=== PATIENT | male | born 1960 | race American Indian/Alaskan Native ===

== ENCOUNTER 2021-01-25 16:31 | Emergency (ER) | payer MEDICARE ==
--- NOTE | 2021-01-25 17:30 | Event Note ---
ED Screening Note Date of service: 01/25/21 Time: 17:24 ED Screening Note: 60 year old with Chronic back pain secondary to DDD, DM diet controlled, HTN presents to the ER today with complaints of urinary retention since yesterday and diarrhea for 1 months. This initial assessment/diagnostic orders/clinical plan/treatment(s) is/are subject to change based on patients health status, clinical progression and re- assessment by fellow clinical providers in the ED. Further treatment and workup at subsequent clinical providers discretion. Patient/guardian urged not to elope from the ED as their condition may be serious if not clinically assessed and managed. Initial orders include: Abdominal pain work-up
[2021-01-25 18:12] LABS: Hematocrit 46.2 % (35.5-45.6); Hemoglobin 15.2 gm/dl (11.8-15.2); Mean Corpuscular HGB Conc 33 % (32-34); Mean Corpuscular Volume 87 fl (84-94); Platelet Count 277 K/mm3 (140-440); Red Blood Count 5.31 M/mm3 (3.65-5.03); Red Cell Distribution Width 14.2 % (13.2-15.2)
[2021-01-25 18:30] LABS: Alanine Aminotransferase 9 units/L (7-56); Albumin 3.8 g/dL (3.9-5); BUN/Creatinine Ratio 14; Bilirubin,Direct 0.3 mg/dL (0-0.2); Blood Urea Nitrogen 11 mg/dL (9-20); Calcium 9.2 mg/dL (8.4-10.2); Hemolysis Index 11
[2021-01-25 19:46] LABS: RBC Morphology Normal; Total Cells Counted 100
--- NOTE | 2021-01-25 22:00 | Emergency Department Report ---
HPI - General Chief Complaint: Abdominal Pain Time Seen by Provider: 01/25/21 17:23 - HPI HPI: Room 17 The patient is a 60-year-old male present with chief complaint of watery stool and decreased urination. The patient states for approximately 2 months he has had watery stool hyperactive sounds, is abdomen (gurgling). Patient states he has had increased flatus. Patient denies nausea or vomiting. Patient states she has had bilateral lower quadrant discomfort for several months. Patient states he has not seen a engineering associate for the symptoms. The patient states since yesterday he has had the urge to urinate but has not been able to. Patient states maybe a few drops come out when he tries ED Past Medical Hx - Past Medical History Previous Medical History?: Yes Hx Hypertension: Yes Hx Diabetes: Yes Hx Arthritis: Yes Additional medical history: DDD - Surgical History Past Surgical History?: Yes Additional Surgical History: neck surgery. tonsillectomy - Family History Family history: no significant - Social History Smoking Status: Never Smoker Substance Use Type: None (Denies illicit drug use), Alcohol (Occasional) - Medications Home Medications: Home Medications Medication Instructions Recorded Confirmed Last Taken Type Lisinopril/Hydrochlorothiazide 1 each PO QDAY #30 tablet 11/19/13 Unknown Rx [Zestoretic 20-12.5 mg] Oxycodone HCl/Acetaminophen 1 each PO Q6HR PRN #30 tablet 11/19/13 Unknown Rx [Percocet 7.5-325 mg] labetaloL [Labetalol 200mg TAB] 200 mg PO BID #60 tablet 11/19/13 Unknown Rx metFORMIN [Glucophage] 500 mg PO BID #60 tablet 11/19/13 Unknown Rx Ciprofloxacin HCl 500 mg PO BID #14 tablet 01/26/21 Unknown Rx traMADoL [Ultram] 50 mg PO Q6HR PRN #10 tablet 01/26/21 Unknown Rx ED Review of Systems ROS: Stated complaint: HYPERGLYCEMIA Other details as noted in HPI Constitutional: fever (Subjective) Eyes: denies: eye pain ENT: denies: throat pain Respiratory: no symptoms reported Cardiovascular: denies: chest pain Endocrine: no symptoms reported Gastrointestinal: abdominal pain, diarrhea. denies: nausea, vomiting Genitourinary: other (Unable to urinate) Musculoskeletal: back pain (Chronic) Neurological: denies: headache Physical Exam - Physical Exam Vital Signs: Vital Signs 01/25/21 17:12 Temperature 99.1 F Pulse Rate 90 Respiratory 20 Rate Blood Pressure 168/104 O2 Sat by Pulse 97 Oximetry Physical Exam: GENERAL: The patient is well-developed well-nourished male lying on stretcher not appearing to be in acute distress. [] HEENT: Normocephalic. Atraumatic. Extraocular motions are intact. Patient has moist mucous membranes. NECK: Supple. Trachea midline CHEST/LUNGS: Clear to auscultation. There is no respiratory distress noted. HEART/CARDIOVASCULAR: Regular. There is no tachycardia. There is no gallop rub or murmur. ABDOMEN: Abdomen is soft, mild discomfort to palpation in the right lower quadrant. There is no rebound or guarding. Patient has normal bowel sounds. There is no abdominal distention. SKIN: There is no rash. There is no edema. There is no diaphoresis. NEURO: The patient is awake, alert, and oriented. The patient is cooperative. The patient has no focal neurologic deficits. The patient has normal speech MUSCULOSKELETAL: There is no evidence of acute injury. ED Course Vital Signs 01/25/21 17:12 Temperature 99.1 F Pulse Rate 90 Respiratory 20 Rate Blood Pressure 168/104 O2 Sat by Pulse 97 Oximetry ED Medical Decision Making - Lab Data Result diagrams: 01/25/21 17:44 01/25/21 17:44 Laboratory Tests 01/25/21 01/25/21 01/25/21 17:21 17:44 17:44 WBC 4.6 RBC 5.31 H Hgb 15.2 Hct 46.2 H MCV 87 MCH 29 MCHC 33 RDW 14.2 Plt Count 277 [place] % (Auto) Field Cane Scaler Helper Add Manual Diff Complete Total Counted 100 Seg Neuts % (Manual) 51.0 Lymphocytes % (Manual) 31.0 Monocytes % (Manual) 17.0 H Eosinophils % (Manual) 1.0 Nucleated RBC % Not Reportable Seg Neutrophils # Man 2.3 Band Neutrophils # 0.0 Lymphocytes # (Manual) 1.4 Abs React Lymphs (Man) 0.0 Monocytes # (Manual) 0.8 Eosinophils # (Manual) 0.0 Basophils # (Manual) 0.0 Metamyelocytes # 0.0 Myelocytes # 0.0 Promyelocytes # 0.0 Blast Cells # 0.0 WBC Morphology Not Reportable Hypersegmented Neuts Not Reportable Hyposegmented Neuts Not Reportable Hypogranular Neuts Not Reportable Smudge Cells Not Reportable Toxic Granulation Not Reportable Toxic Vacuolation Not Reportable Dohle Bodies Not Reportable Pelger-Huet Anomaly Not Reportable Garfield Rods Not Reportable Platelet Estimate Not Reportable Clumped Platelets Not Reportable Plt Clumps, EDTA Not Reportable Large Platelets Not Reportable Giant Platelets Not Reportable Platelet Satelliting Not Reportable Plt Morphology Comment Not Reportable RBC Morphology Normal Dimorphic RBCs Not Reportable Polychromasia Not Reportable Hypochromasia Not Reportable Poikilocytosis Not Reportable Anisocytosis Not Reportable Microcytosis Not Reportable Macrocytosis Not Reportable Spherocytes Not Reportable Pappenheimer Bodies Not Reportable Sickle Cells Not Reportable Target Cells Not Reportable Tear Drop Cells Not Reportable Ovalocytes Not Reportable Helmet Cells Not Reportable Abd[place] Bodies Not Reportable [place] Rings Not Reportable [place] Cells Not Reportable Bite Cells Not Reportable Crenated Cell Not Reportable Elliptocytes Not Reportable Acanthocytes (Spur) Not Reportable Rouleaux Not Reportable Hemoglobin C Crystals Not Reportable Schistocytes Not Reportable Malaria parasites Not Reportable Thomas Bodies Not Reportable Hem Pathologist Commnt No Sodium 139 Potassium 4.2 Chloride 100.6 Carbon Dioxide 27 Anion Gap 16 BUN 11 Creatinine 0.8 Estimated GFR > 60 BUN/Creatinine Ratio 14 Glucose 105 H POC Glucose 111 H Calcium 9.2 Total Bilirubin 0.70 Direct Bilirubin 0.3 H Indirect Bilirubin 0.4 AST 13 ALT 9 Alkaline Phosphatase 42 Total Protein 7.6 Albumin 3.8 L Albumin/Globulin Ratio 1.0 Lipase 14 Urine Color Urine Turbidity Urine pH Ur Specific Josephine Urine Protein Urine Glucose (UA) Urine Ketones Urine Blood Urine Nitrite Urine Bilirubin Urine Urobilinogen Ur Leukocyte Esterase Urine WBC (Auto) Urine RBC (Auto) U Epithel Cells (Auto) Urine Bacteria (Auto) Urine Mucus 01/25/21 23:03 WBC RBC Hgb Hct MCV MCH MCHC RDW Plt Count [place] % (Auto) Add Manual Diff Total Counted Seg Neuts % (Manual) Lymphocytes % (Manual) Monocytes % (Manual) Eosinophils % (Manual) Nucleated RBC % Seg Neutrophils # Man Band Neutrophils # Lymphocytes # (Manual) Abs React Lymphs (Man) Monocytes # (Manual) Eosinophils # (Manual) Basophils # (Manual) Metamyelocytes # Myelocytes # Promyelocytes # Blast Cells # WBC Morphology Hypersegmented Neuts Hyposegmented Neuts Hypogranular Neuts Smudge Cells Toxic Granulation Toxic Vacuolation Dohle Bodies Pelger-Huet Anomaly Garfield Rods Platelet Estimate Clumped Platelets Plt Clumps, EDTA Large Platelets Giant Platelets Platelet Satelliting Plt Morphology Comment RBC Morphology Dimorphic RBCs Polychromasia Hypochromasia Poikilocytosis Anisocytosis Microcytosis Macrocytosis Spherocytes Pappenheimer Bodies Sickle Cells Target Cells Tear Drop Cells Ovalocytes Helmet Cells Abdalla-[place] Bodies [place] Rings [place] Cells Bite Cells Crenated Cell Elliptocytes Acanthocytes (Spur) Rouleaux Hemoglobin C Crystals Schistocytes Malaria parasites Thomas Bodies Hem Pathologist Commnt Sodium Potassium Chloride Carbon Dioxide Anion Gap BUN Creatinine Estimated GFR BUN/Creatinine Ratio Glucose POC Glucose Calcium Total Bilirubin Direct Bilirubin Indirect Bilirubin AST ALT Alkaline Phosphatase Total Protein Albumin Albumin/Globulin Ratio Lipase Urine Color Glenny Urine Turbidity Clear Urine pH 5.0 Ur Specific Josephine 1.024 Urine Protein 100 mg/dl Urine Glucose (UA) Neg Urine Ketones Tr Urine Blood Neg Urine Nitrite Neg Urine Bilirubin Neg Urine Urobilinogen 2.0 Ur Leukocyte Esterase Neg Urine WBC (Auto) 8.0 H Urine RBC (Auto) 9.0 U Epithel Cells (Auto) < 1.0 Urine Bacteria (Auto) 1+ Urine Mucus 3+ - Radiology Data Radiology results: report reviewed (CT abdomen pelvis), image reviewed (CT abdomen pelvis) [facility] [address] [place] [address] Cat Scan Report Signed Patient: LEVI TERRY MR#: [id number] 12 : 1960 ct:[id number] Age/Sex: 60 / M ADM Date: 01/25/21 Loc: ED Attending Dr: Ordering Physician: RUI COX MD Date of Service: 01/25/21 Procedure(s): CT abdomen pelvis wo con Accession Number(s): [id number] cc: RUI COX MD CT ABDOMEN AND PELVIS WITHOUT CONTRAST INDICATION / CLINICAL INFORMATION: Lower abdominal discomfort, watery stool. TECHNIQUE: Axial CT images were obtained through the abdomen and pelvis without IV contrast. All CT scans at this location are performed using CT dose reduction for ALARA by means of automated exposure control. COMPARISON: None available. FINDINGS: LOWER CHEST: No significant abnormality. LIVER: No significant abnormality. GALLBLADDER: No significant abnormality. BILE DUCTS: No significant abnormality. PANCREAS: No significant abnormality. SPLEEN: No significant abnormality. ADRENALS: No significant abnormality. RIGHT KIDNEY / URETER: Multiple nonobstructive lower pole right renal stones are seen measuring up to 4 mm. There is nonspecific mild to moderate right perinephric fat stranding. Right lower renal pole cysts measure up to 6.2 cm. No other significant abnormality. LEFT KIDNEY / URETER: There is nonspecific mild to moderate left perinephric fat stranding with a cyst seen along the mid pole measuring up to 2 cm . A 2 mm nonobstructive stone is seen along the left lower pole. There is a 4.6 mm nonobstructive mid pole stone. No other significant abnormality. STOMACH / SMALL BOWEL: No significant abnormality. COLON: No significant abnormality. APPENDIX: No significant abnormality. PERITONEUM: No free fluid. No free air. No fluid collection. LYMPH NODES: There are multiple mildly enlarged bilateral inguinal nodes. A equal opportunity representative right inguinal node on image 197 of series 2 measures 1.5 cm in short axis dimension. No other significant adenopathy. AORTA / ARTERIES: There is mild generalized atherosclerosis without other significant abnormalities. IVC / VEINS: No significant abnormality. URINARY BLADDER: Drained by a Shahid catheter. REPRODUCTIVE ORGANS: No significant abnormality. ADDITIONAL FINDINGS: None. SKELETAL SYSTEM: No acute abnormality. Moderate degenerative changes are seen throughout the spine and pelvis. IMPRESSION: 1. No acute abnormality to explain the patient's pain/abnormal stools. 2. Nonspecific bilateral inguinal adenopathy. Close clinical follow-up to resolution is recommended. 3. Additional findings as above. Signer Name: Jose Moses MD Signed: 01/26/2021 12:17 AM Workstation Name: [id number] Transcribed By: JEAN Dictated By: Jose Moses MD Electronically Authenticated By: Jose Moses MD Signed Date/Time: 01/26/2116 DD/ TD/TT: Print Cancel - Differential Diagnosis Enteritis, irritable bowel syndrome, BPH, urinary retention, dehydration Critical care attestation.: If time is entered above; I have spent that time in minutes in the direct care of this critically ill patient, excluding procedure time. ED Disposition Clinical Impression: Urinary retention, UTI (urinary tract infection), Abdominal pain Disposition: DC- TO HOME OR SELFCARE Is pt being admited?: No Does the pt Need Aspirin: No Condition: Stable Instructions: Urinary Tract Infection, Adult, Acute Urinary Retention, Male, Abdominal Pain, Adult, [id number] Additional Instructions: Return to the emergency department should you develop worsening symptoms, inability to tolerate food or liquids, high fever or any other concerns Prescriptions: Ciprofloxacin HCl 500 mg PO BID #14 tablet traMADoL [Ultram] 50 mg PO Q6HR PRN #10 tablet PRN Reason: Pain Referrals: PRIMARY CAREMD [Primary Care Provider] - 3-5 Days STEVEN RASMUSSEN MD [Staff Physician] - 3-5 Days (Dr. Rasmussen is a urologist. Please follow-up with him for further evaluation) Time of Disposition: 00:30
[2021-01-25 23:36] LABS: Bacteria,Urine 1+ /HPF (Negative); Bilirubin,Urine NEG (Negative); Blood,Urine NEG (Negative); Color,Urine Amber (Yellow); Mucus,Urine 3+ /HPF
--- NOTE | 2021-01-26 00:21 | Cat Scan Report ---
CT ABDOMEN AND PELVIS WITHOUT CONTRAST INDICATION / CLINICAL INFORMATION: Lower abdominal discomfort, watery stool. TECHNIQUE: Axial CT images were obtained through the abdomen and pelvis without IV contrast. All CT scans at [facility] are performed using CT dose reduction for ALARA by means of automated exposure control. COMPARISON: None available. FINDINGS: LOWER CHEST: No significant abnormality. LIVER: No significant abnormality. GALLBLADDER: No significant abnormality. BILE DUCTS: No significant abnormality. PANCREAS: No significant abnormality. SPLEEN: No significant abnormality. ADRENALS: No significant abnormality. RIGHT KIDNEY / URETER: Multiple nonobstructive lower pole right renal stones are seen measuring up to 4 mm. There is nonspecific mild to moderate right perinephric fat stranding. Right lower renal pole cysts measure up to 6.2 cm. No other significant abnormality. LEFT KIDNEY / URETER: There is nonspecific mild to moderate left perinephric fat stranding with a cys t seen along the mid pole measuring up to 2 cm . A 2 mm nonobstructive stone is seen along the left l ower pole. There is a 4.6 mm nonobstructive mid pole stone. No other significant abnormality. STOMACH / SMALL BOWEL: No significant abnormality. COLON: No significant abnormality. APPENDIX: No significant abnormality. PERITONEUM: No free fluid. No free air. No fluid collection. LYMPH NODES: There are multiple mildly enlarged bilateral inguinal nodes. A internet sales representative right ingu inal node on image 197 of series 2 measures 1.5 cm in short axis dimension. No other significant silvia opathy. AORTA / ARTERIES: There is mild generalized atherosclerosis without other significant abnormalities. IVC / VEINS: No significant abnormality. URINARY BLADDER: Drained by a Shahid catheter. REPRODUCTIVE ORGANS: No significant abnormality. ADDITIONAL FINDINGS: None. SKELETAL SYSTEM: No acute abnormality. Moderate degenerative changes are seen throughout the spine an d pelvis. IMPRESSION: 1. No acute abnormality to explain the patient's pain/abnormal stools. 2. Nonspecific bilateral inguinal adenopathy. Close clinical follow-up to resolution is recommended. 3. Additional findings as above. Signer Name: Jose Moses MD Signed: 01/26/2021 12:17 AM Workstation Name: [id number]
[2021-01-26 01:30] VITALS: BP 158/89
== END 2021-01-26 00:55 | disposition home or self-care (01) ==
LOC: ED 16:31
DX: R33.9 Retention of urine, unspecified (principal); N39.0 Urinary tract infection, site not specified; R10.32 Left lower quadrant pain; R10.31 Right lower quadrant pain; I10 Essential (primary) hypertension; E11.9 Type 2 diabetes mellitus without complications; M19.90 Unspecified osteoarthritis, unspecified site; Z90.89 Acquired absence of other organs; Z98.890 Other specified postprocedural states; Z79.899 Other long term (current) drug therapy
CPT/HCPCS: 36415; 51702; 74176; 80048; 80076; 81001; 82962; 83690; 85007; 85025; 87086; 99284

== ENCOUNTER 2021-02-23 16:24 | Emergency (ER) | payer MEDICARE ==
[2021-02-23] MEDS ORDERED: IBUPROFEN 600 MG TAB PO ONE (22:46)
[2021-02-23] MEDS ORDERED: HYDROcodone/ACETAMINOPHEN 5-325 MG TAB PO ONE (22:46)
--- NOTE | 2021-02-24 00:57 | Emergency Department Report ---
ED Male HPI - General Chief complaint: Urogenital-Male Stated complaint: CATHETER ISSUES/BOWEL MOVEMENT DISCOMFORT Time Seen by Provider: 02/23/21 22:41 Source: patient Mode of arrival: Wheelchair Limitations: No Limitations - History of Present Illness Initial comments: Patient is a 60-year-old F [place] male with hypertension diabetes who is prese nting with pain with his Shahid catheter. Cath has been in since 01/25/2021. Was placed because of urinary retention. Patient has seen the urologist and the Shahid was not removed at that time. He was started on Flomax and had labs and is to follow-up in a week. Patient states over the last week or so he has had some increased pain at the Shahid. It is draining urine spontaneously. He also states that because he normally urinates before defecation has had some problems having bowel movements. States that this this is thrown off his normal routine. Has been sleeping less because of discomfort. He denies any fevers chills cough cold congestion nausea vomiting or diarrhea. He has had bowel movements but has to drink prune juice in order to loosen his stools enough to go to the bathroom. - Related Data Previous Rx's Medication Instructions Recorded Last Taken Type Lisinopril/Hydrochlorothiazide 1 each PO QDAY #30 tablet 11/19/13 Unknown Rx [Zestoretic 20-12.5 mg] Oxycodone HCl/Acetaminophen 1 each PO Q6HR PRN #30 tablet 11/19/13 Unknown Rx [Percocet 7.5-325 mg] labetaloL [Labetalol 200mg TAB] 200 mg PO BID #60 tablet 11/19/13 Unknown Rx metFORMIN [Glucophage] 500 mg PO BID #60 tablet 11/19/13 Unknown Rx Ciprofloxacin HCl 500 mg PO BID #14 tablet 01/26/21 Unknown Rx traMADoL [Ultram] 50 mg PO Q6HR PRN #10 tablet 01/26/21 Unknown Rx Ciprofloxacin HCl 500 mg PO BID #20 tablet 02/24/21 Unknown Rx HYDROcodone/APAP 5-325 [[place] 1 each PO Q6HR PRN #14 tablet 02/24/21 Unknown Rx 5/325] Allergies Allergy/AdvReac Type Severity Reaction Status Date / Time No Known Allergies Allergy Unverified 11/19/13 15:31 ED Review of Systems ROS: Stated complaint: CATHETER ISSUES/BOWEL MOVEMENT DISCOMFORT Other details as noted in HPI Comment: All other systems reviewed and negative ED Past Medical Hx - Past Medical History Previous Medical History?: Yes Hx Hypertension: Yes Hx Diabetes: Yes Hx Arthritis: Yes Additional medical history: DDD - Surgical History Past Surgical History?: Yes Additional Surgical History: neck surgery. tonsillectomy - Social History Smoking Status: Never Smoker Substance Use Type: None (Denies illicit drug use), Alcohol (Occasional) - Medications Home Medications: Home Medications Medication Instructions Recorded Confirmed Last Taken Type Lisinopril/Hydrochlorothiazide 1 each PO QDAY #30 tablet 11/19/13 Unknown Rx [Zestoretic 20-12.5 mg] Oxycodone HCl/Acetaminophen 1 each PO Q6HR PRN #30 tablet 11/19/13 Unknown Rx [Percocet 7.5-325 mg] labetaloL [Labetalol 200mg TAB] 200 mg PO BID #60 tablet 11/19/13 Unknown Rx metFORMIN [Glucophage] 500 mg PO BID #60 tablet 11/19/13 Unknown Rx Ciprofloxacin HCl 500 mg PO BID #14 tablet 01/26/21 Unknown Rx traMADoL [Ultram] 50 mg PO Q6HR PRN #10 tablet 01/26/21 Unknown Rx Ciprofloxacin HCl 500 mg PO BID #20 tablet 02/24/21 Unknown Rx HYDROcodone/APAP 5-325 [[place] 1 each PO Q6HR PRN #14 tablet 02/24/21 Unknown Rx 5/325] ED Physical Exam - General Limitations: No Limitations General appearance: alert, in no apparent distress - Head Head exam: Present: atraumatic, normocephalic - Eye Eye exam: Present: normal appearance - ENT ENT exam: Present: mucous membranes moist - Neck Neck exam: Present: normal inspection - Respiratory Respiratory exam: Present: normal lung sounds bilaterally. Absent: respiratory distress - Cardiovascular Cardiovascular Exam: Present: regular rate, normal rhythm. Absent: systolic murmur, diastolic murmur, rubs, gallop - GI/Abdominal GI/Abdominal exam: Present: soft, normal bowel sounds. Absent: distended, guarding, rebound, rigid - Rectal Rectal exam: Present: deferred - Extremities Exam Extremities exam: Present: normal inspection - Back Exam Back exam: Present: normal inspection - Neurological Exam Neurological exam: Present: alert, oriented X3 - Psychiatric Psychiatric exam: Present: normal affect, normal mood - Skin Skin exam: Present: warm, dry, intact, normal color. Absent: rash ED Course Vital Signs 02/23/21 16:41 Temperature 98.4 F Pulse Rate 105 H Respiratory 18 Rate Blood Pressure 162/112 [Right] O2 Sat by Pulse 98 Oximetry ED Medical Decision Making - Medical Decision Making Catheter was replaced with a new catheter and the patient will follow up with urology as an outpatient. Critical care attestation.: If time is entered above; I have spent that time in minutes in the direct care of this critically ill patient, excluding procedure time. ED Disposition Clinical Impression: Urinary retention, Shahid catheter problem Disposition: DC-01 TO HOME OR SELFCARE Is pt being admited?: No Does the pt Need Aspirin: No Condition: Stable Instructions: Acute Urinary Retention, Male Referrals: ISADORA BOB MD [Staff Physician] - 3-5 Days Time of Disposition: 01:31
[2021-02-24 02:34] VITALS: BP 168/89
== END 2021-02-24 02:33 | disposition home or self-care (01) ==
LOC: ED 16:24
DX: T83.098A Other mechanical complication of other urinary catheter, initial encounter (principal); R33.9 Retention of urine, unspecified; I10 Essential (primary) hypertension; E11.9 Type 2 diabetes mellitus without complications; M19.91 Primary osteoarthritis, unspecified site; Z98.890 Other specified postprocedural states; Z79.84 Long term (current) use of oral hypoglycemic drugs; Z79.899 Other long term (current) drug therapy; Y92.89 Other specified places as the place of occurrence of the external cause
CPT/HCPCS: 51702; 99282